=== PATIENT | male | born 2005 | race Two or more races ===

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

== ENCOUNTER 2025-03-04 22:06 | Emergency (ER) | payer OTHER ==
[~2025-03-04] VITALS: Ht 182.9 cm; Wt 70.8 kg
[2025-03-04] MEDS ORDERED: LIDOCAINE HCL 1% 10ML VIAL ONE (22:39)
[2025-03-04] MEDS ORDERED: CEFTRIAXONE SODIUM 1,000 MG VIAL ONE (22:39)
[2025-03-04] MEDS ORDERED: CEFTRIAXONE SODIUM 1,000 MG VIAL IM STA (23:00)
[2025-03-05 00:38] LABS: BASO % 0.4 % (0.1-1.2); EOS # 0.05 (0.04-0.54); EOS % 0.9 % (0.7-7.0); HEMATOCRIT 45.6 % (40.1-51.0); HEMOGLOBIN 15.6 g/dL (13.7-17.5); LYMPH # 1.13 (1.18-3.74); LYMPH % 21.3 % (19.3-53.1); MEAN CORPUSCULAR HEMOGLOBIN 26.9 pg (25.6-32.2); MONO # 0.49 (0.24-0.82); MONO % 9.2 % (4.7-12.5); PLATELET COUNT 268 K/uL (163-369); RED BLOOD COUNT 5.79 M/uL (4.63-6.08); RED CELL DISTRIBUTION WIDTH 12.1 % (11.6-14.4)
[2025-03-05 01:09] LABS: COVID-19 AG NEGATIVE (NEGATIVE); INFLUENZA A AG NEGATIVE (NEGATIVE); INFLUENZA B AG NEGATIVE (NEGATIVE)
[2025-03-05] MEDS ORDERED: ORASEP SPRAY30 ML MM (02:44)
[2025-03-05] MEDS ORDERED: PHENAGIL TABLE1 EACH PO (02:44)
== END 2025-03-05 03:47 ==
LOC: EMR PED 22:41
DX: B34.9 Viral infection, unspecified (principal); Z91.013 Allergy to seafood; J03.80 Acute tonsillitis due to other specified organisms; Z20.822 Contact with and (suspected) exposure to COVID-19